=== PATIENT | female | born 1985 | race African-American/Black ===

== ENCOUNTER 2019-07-28 01:01 | Emergency (ER) | payer OTHER ==
[~2019-07-28] VITALS: Ht 175.3 cm; Wt 77.0 kg
[2019-07-28 01:15] VITALS: BP 133/81
== END 2019-07-28 01:16 | disposition home or self-care (01) ==
LOC: ER 01:01
DX: Z02.89 Encounter for other administrative examinations (principal)
CPT/HCPCS: 99283

== ENCOUNTER 2020-01-11 18:39 | Emergency (ER) | payer OTHER ==
[~2020-01-11] VITALS: Ht 167.6 cm; Wt 68.0 kg
[2020-01-11] MEDS ORDERED: LORAZEPAM 1MG TABLET PO ONE (19:30)
[2020-01-11 19:50] VITALS: BP 129/89
== END 2020-01-11 19:57 | disposition home or self-care (01) ==
LOC: ER 18:39
DX: F41.9 Anxiety disorder, unspecified (principal); I49.9 Cardiac arrhythmia, unspecified
CPT/HCPCS: 93005; 99283

== ENCOUNTER 2021-12-20 17:00 | Emergency (ER) | payer MEDICAID ==
[~2021-12-20] VITALS: Ht 172.7 cm; Wt 102.0 kg
[2021-12-20] MEDS ORDERED: LORAZEPAM 2MG/ML CPJ IM ONE (17:15)
[2021-12-20] MEDS ORDERED: DIPHENHYDRAMINE 50MG/ML VIAL IM ONE (17:15)
[2021-12-20] MEDS ORDERED: HALOPERIDOL LACTATE 5MG/ML VIAL IM ONE (17:15)
[2021-12-20 18:25] LABS: BASOPHILS % 0.3 % (0.0-2.0); EOSINOPHILS % 5.2 % (0.0-5.0); HEMATOCRIT. 37.2 % (36.0-48.0); LYMPHOCYTES % 21.6 % (20.0-50.0); MEAN CORPUSCULAR HEMOGLOBIN 27.9 pg (28.0-32.0); MEAN CORPUSCULAR VOLUME 86.2 fL (81.0-99.0); MEAN PLATELET VOLUME 7.8 fl (7.4-10.4); MONOCYTES % 9.5 % (2.0-8.0); NEUTROPHILS % 63.4 % (40.0-76.0); PLATELET 246 x1000/uL (130-400); RED BLOOD CELL COUNT 4.32 mill/uL (4.2-5.4); RED CELL DISTRIBUTION WIDTH 16.1 % (11.6-14.6)
[2021-12-20 18:32] LABS: CHLORIDE 107 mEq/L (98-107)
[2021-12-20 18:34] LABS: HCG SCREEN NEGATIVE
[2021-12-20 18:39] LABS: ETHANOL BLOOD < 10 mg/dL
[2021-12-20 22:50] LABS: CLARITY URINE CLOUDY (CLEAR); COLOR URINE YELLOW (YELLOW); KETONES URINE TRACE (NEGATIVE); LEUKOCYTE ESTERASE URINE 1+ (NEGATIVE); NITRITE URINE POSITIVE (NEGATIVE); OCCULT BLOOD URINE 1+ (NEGATIVE); PROTEIN URINE 1+ (NEGATIVE); SPECIFIC GRAVITY URINE 1.028 (1.005-1.030)
[2021-12-20 23:06] LABS: *BARBITURATES SCREEN URINE NEGATIVE (NEGATIVE); *BENZODIAZEPINES SCREEN URINE NEGATIVE (NEGATIVE); *COCAINE SCREEN URINE NEGATIVE (NEGATIVE); CANNABINOID URINE SCREEN NEGATIVE (NEGATIVE); METHADONE URINE SCREEN NEGATIVE (NEGATIVE); OPIATES URINE SCREEN NEGATIVE (NEGATIVE); PHENCYCLIDINE URINE SCREEN NEGATIVE (NEGATIVE)
[2021-12-20 23:14] LABS: *AMPHETAMINES SCREEN URINE PRESUMTIVE POSITIVE (NEGATIVE)
[2021-12-21] MEDS: OLANZAPINE 5MG TABLET PO SCH ×2 (12:00→18:00)
[2021-12-22] MEDS: OLANZAPINE 5MG TABLET PO SCH (09:40)
[2021-12-22 12:44] VITALS: BP 142/78
== END 2021-12-22 13:03 | disposition home or self-care (01) ==
LOC: ER 17:00
DX: F29 Unspecified psychosis not due to a substance or known physiological condition (principal); F41.0 Panic disorder [episodic paroxysmal anxiety]; R45.1 Restlessness and agitation; F31.9 Bipolar disorder, unspecified; F20.9 Schizophrenia, unspecified; Z20.822 Contact with and (suspected) exposure to COVID-19
CPT/HCPCS: 36415; 80053; 80305; 80307; 80320; 80329; 81003; 84703; 85025; 87086; 96372; 99285; C9803; J1200; J1630; J2060; U0003; U0005; G0480

== ENCOUNTER 2022-02-26 09:48 | Emergency (ER) | payer MEDICAID ==
[~2022-02-26] VITALS: Ht 162.6 cm; Wt 66.0 kg
[2022-02-26 09:51] VITALS: BP 152/95
== END 2022-02-26 11:24 | disposition home or self-care (01) ==
LOC: ER 09:48
DX: F15.10 Other stimulant abuse, uncomplicated (principal); Z86.59 Personal history of other mental and behavioral disorders
CPT/HCPCS: 99283

== ENCOUNTER 2022-06-19 18:45 | Emergency (ER) | payer MEDICAID ==
[~2022-06-19] VITALS: Ht 167.6 cm; Wt 77.0 kg
[2022-06-19 18:51] VITALS: BP 132/87
[2022-06-19] MEDS ORDERED: LORAZEPAM 1MG TABLET PO ONE (19:00)
[2022-06-19 19:30] LABS: BASOPHILS % 0.6 % (0.0-2.0); EOSINOPHILS % 8.3 % (0.0-5.0); HEMATOCRIT. 36.2 % (36.0-48.0); LYMPHOCYTES % 22.9 % (20.0-50.0); MEAN CORPUSCULAR VOLUME 87.7 fL (81.0-99.0); MEAN PLATELET VOLUME 7.2 fl (7.4-10.4); MONOCYTES % 9.5 % (2.0-8.0); NEUTROPHILS % 58.7 % (40.0-76.0); PLATELET 245 x1000/uL (130-400); RED BLOOD CELL COUNT 4.12 mill/uL (4.2-5.4); RED CELL DISTRIBUTION WIDTH 14.9 % (11.6-14.6)
[2022-06-19 19:34] LABS: CHLORIDE 111 mEq/L (98-107)
[2022-06-19 19:38] LABS: ETHANOL BLOOD < 10 mg/dL
== END 2022-06-19 19:58 | disposition home or self-care (01) ==
LOC: ER 18:45
DX: F41.1 Generalized anxiety disorder (principal); R44.3 Hallucinations, unspecified; J45.909 Unspecified asthma, uncomplicated; F31.9 Bipolar disorder, unspecified; I10 Essential (primary) hypertension
CPT/HCPCS: 36415; 80053; 80307; 80320; 80329; 85025; 99283; G0480

== ENCOUNTER 2022-06-28 23:56 | Emergency (ER) | payer MEDICAID ==
[~2022-06-28] VITALS: Ht 167.6 cm; Wt 72.6 kg
[2022-06-29 00:10] VITALS: BP 138/72
[2022-06-29] MEDS ORDERED: IPRATROPIUM/ALBUTEROL 0.5-3(2.5)MG/3ML NEB HHN ONE (03:00)
[2022-06-29] MEDS ORDERED: DOXY100T2 PO (03:02)
[2022-06-29] MEDS ORDERED: BENZ1LOZ73 PO (03:02)
[2022-06-29] MEDS ORDERED: ALBU6.7H15 INH (03:02)
[2022-06-29] MEDS ORDERED: LEVE1000 PO (03:03)
[2022-06-29] MEDS ORDERED: DOXYCYCLINE HYCLATE 100MG CAPSULE PO ONE (03:15)
== END 2022-06-29 03:33 | disposition home or self-care (01) ==
LOC: ER 23:56
DX: J45.901 Unspecified asthma with (acute) exacerbation (principal); J06.9 Acute upper respiratory infection, unspecified; F41.9 Anxiety disorder, unspecified; F31.9 Bipolar disorder, unspecified; F20.9 Schizophrenia, unspecified; I10 Essential (primary) hypertension; Z76.0 Encounter for issue of repeat prescription
CPT/HCPCS: 81025; 94640; 99283; Z7610

== ENCOUNTER 2022-09-02 03:35 | Emergency (ER) | payer MEDICAID ==
[~2022-09-02] VITALS: Ht 170.2 cm; Wt 79.0 kg
[~2022-09-02 03:35] MED LIST: ALBU6.7H15 INH; BENZ1LOZ73 PO; DOXY100T2 PO; LEVE1000 PO
[2022-09-02 03:38] VITALS: BP 124/70; PULSE 84; RESP 16; TEMP 97.9; O2SAT 100
== END 2022-09-02 04:06 | disposition left against medical advice (07) ==
LOC: ER 03:45
DX: Z53.21 Procedure and treatment not carried out due to patient leaving prior to being seen by health care provider (principal)
CPT/HCPCS: 99281

== ENCOUNTER 2022-10-19 03:36 | Emergency (ER) | payer MEDICAID ==
[~2022-10-19] VITALS: Ht 167.6 cm; Wt 72.0 kg
[2022-10-19 03:41] VITALS: O2SAT 98
[2022-10-19 05:02] LABS: BASOPHILS % 0.4 % (0.0-2.0); EOSINOPHILS % 3.3 % (0.0-5.0); HEMATOCRIT. 36.4 % (36.0-48.0); HEMOGLOBIN. 11.5 g/dL (12.0-16.0); MEAN CORPUSCULAR HEMOGLOBIN 28.3 pg (28.0-32.0); MEAN CORPUSCULAR HGB CONC 31.7 g/dL (31.0-37.0); MEAN CORPUSCULAR VOLUME 89.3 fL (81.0-99.0); MEAN PLATELET VOLUME 7.6 fl (7.4-10.4); MONOCYTES % 9.5 % (2.0-8.0); NEUTROPHILS % 60.8 % (40.0-76.0); PLATELET 202 x1000/uL (130-400); RED BLOOD CELL COUNT 4.08 mill/uL (4.2-5.4); RED CELL DISTRIBUTION WIDTH 14.5 % (11.6-14.6); WHITE BLOOD COUNT 8.4 x1000/uL (4.5-11.0)
[2022-10-19 05:08] LABS: CALCIUM 8.3 mg/dL (8.5-10.1); CHLORIDE 107 mEq/L (98-107); INDEX HEMOLYSI 1 (1-3); INDEX ICTERIC 1 (1-4); INDEX LIPEMIC 1 (1-3); POTASSIUM 3.2 mEq/L (3.5-5.1); SODIUM 135 mEq/L (136-145)
[2022-10-19 05:14] LABS: ACETAMINOPHEN < 2 ug/mL (10-30); ALANINE AMINOTRANSFERASE 23 IU/L (13-61); ALBUMIN 3.2 g/dL (3.4-5.0); ASPARTATE AMINOTRANSFERASE 17 IU/L (15-37); BILIRUBIN TOTAL 0.3 mg/dL (0.1-1.0); CARBON DIOXIDE 27 mEq/L (21-32); CREATININE 0.9 mg/dL (0.6-1.3); ETHANOL BLOOD < 10 mg/dL (-10); GLUCOSE 82 mg/dL (70-105); PROTEIN TOTAL 6.9 g/dL (6.0-8.3); UREA NITROGEN BLOOD 16 mg/dL (7-21)
[2022-10-19 05:22] LABS: CLARITY URINE TURBID (CLEAR); COLOR URINE YELLOW (YELLOW); GLUCOSE URINE NEGATIVE (NEGATIVE); KETONES URINE NEGATIVE (NEGATIVE); LEUKOCYTE ESTERASE URINE 3+ (NEGATIVE); NITRITE URINE NEGATIVE (NEGATIVE); OCCULT BLOOD URINE 2+ (NEGATIVE); PH URINE 5.5 (4.5-8.0); PROTEIN URINE TRACE (NEGATIVE); SPECIFIC GRAVITY URINE 1.021 (1.005-1.030)
[2022-10-19 05:25] LABS: YEAST URINE NONE SEEN
[2022-10-19 05:48] LABS: *BARBITURATES SCREEN URINE NEGATIVE (NEGATIVE); *BENZODIAZEPINES SCREEN URINE NEGATIVE (NEGATIVE); *COCAINE SCREEN URINE NEGATIVE (NEGATIVE); CANNABINOID URINE SCREEN NEGATIVE (NEGATIVE); METHADONE URINE SCREEN NEGATIVE (NEGATIVE); OPIATES URINE SCREEN NEGATIVE (NEGATIVE); PHENCYCLIDINE URINE SCREEN NEGATIVE (NEGATIVE)
[2022-10-19 06:00] LABS: *AMPHETAMINES SCREEN URINE PRESUMTIVE POSITIVE (NEGATIVE); ECSTASY MDMA SCREEN URINE CONF.TEST INDICATED (NEGATIVE)
[2022-10-19] MEDS ORDERED: LEVETIRACETAM 500MG TABLET PO ONE (06:15)
[2022-10-19 07:14] LABS: SQUAMOUS EPITHELIAL CELL URINE 1+ /lpf (RARE/1+)
[2022-10-19 07:15] LABS: WBC URINE 15-25 /hpf (0-2)
[2022-10-19 07:18] LABS: BACTERIA URINE 2+
[2022-10-19] MEDS ORDERED: LEVETIRACETAM 500MG TABLET PO NR (11:00)
[2022-10-19] MEDS ORDERED: POTASSIUM CHLORIDE 20MEQ TABLET SR PO ONE (14:00)
[2022-10-19 16:34] LABS: CALCIUM 8.6 mg/dL (8.5-10.1); CARBON DIOXIDE 28 mEq/L (21-32); CHLORIDE 111 mEq/L (98-107); CREATININE 0.8 mg/dL (0.6-1.3); GLUCOSE 105 mg/dL (70-105); INDEX HEMOLYSI 1 (1-3); INDEX ICTERIC 1 (1-4); INDEX LIPEMIC 1 (1-3); POTASSIUM 3.7 mEq/L (3.5-5.1); SODIUM 139 mEq/L (136-145); UREA NITROGEN BLOOD 11 mg/dL (7-21)
[2022-10-19] MEDS: FLUOXETINE HCL 10 MG CAPSULE PO SCH (17:00)
[2022-10-20] MEDS: LEVETIRACETAM 500MG TABLET PO SCH ×2 (09:00→22:18)
[2022-10-20] MEDS: FLUOXETINE HCL 10 MG CAPSULE PO SCH (09:00)
[2022-10-20] MEDS ORDERED: LEVETIRACETAM 500MG TABLET PO SCH (09:00)
[2022-10-21] MEDS: FLUOXETINE HCL 10 MG CAPSULE PO SCH (09:08)
[2022-10-21] MEDS: LEVETIRACETAM 500MG TABLET PO SCH (09:08)
[2022-10-21 09:53] VITALS: BP 131/56; PULSE 80; RESP 18; TEMP 98
== END 2022-10-21 09:56 | disposition home or self-care (01) ==
LOC: ER 03:36
DX: R45.851 Suicidal ideations (principal); F17.200 Nicotine dependence, unspecified, uncomplicated; F12.10 Cannabis abuse, uncomplicated; I10 Essential (primary) hypertension; J45.909 Unspecified asthma, uncomplicated; Z20.822 Contact with and (suspected) exposure to COVID-19; Z86.59 Personal history of other mental and behavioral disorders
CPT/HCPCS: 80053; 80305; 80048; 81003; 81025; 80307; 80329; 80320; 85025; 87086; 36415; 99285; 87426; C9803; G0480

== ENCOUNTER 2022-11-19 01:49 | Emergency (ER) | payer MEDICAID ==
[~2022-11-19] VITALS: Ht 165.1 cm; Wt 82.0 kg
[2022-11-19 01:53] VITALS: O2SAT 99
[2022-11-19] MEDS ORDERED: ASPIRIN 325MG EC TABLET PO ONE (02:00)
[2022-11-19 02:45] LABS: CLARITY URINE TURBID (CLEAR); COLOR URINE YELLOW (YELLOW); GLUCOSE URINE NEGATIVE (NEGATIVE); KETONES URINE NEGATIVE (NEGATIVE); LEUKOCYTE ESTERASE URINE 2+ (NEGATIVE); NITRITE URINE NEGATIVE (NEGATIVE); OCCULT BLOOD URINE NEGATIVE (NEGATIVE); PROTEIN URINE NEGATIVE (NEGATIVE)
[2022-11-19 02:49] LABS: BACTERIA URINE 2+; YEAST URINE NONE SEEN
[2022-11-19 03:14] LABS: SQUAMOUS EPITHELIAL CELL URINE 1+ /lpf (RARE/1+)
[2022-11-19 03:22] LABS: *BARBITURATES SCREEN URINE NEGATIVE (NEGATIVE); *BENZODIAZEPINES SCREEN URINE NEGATIVE (NEGATIVE); *COCAINE SCREEN URINE NEGATIVE (NEGATIVE); CANNABINOID URINE SCREEN NEGATIVE (NEGATIVE); ECSTASY MDMA SCREEN URINE NEGATIVE (NEGATIVE); METHADONE URINE SCREEN NEGATIVE (NEGATIVE); OPIATES URINE SCREEN NEGATIVE (NEGATIVE); PHENCYCLIDINE URINE SCREEN NEGATIVE (NEGATIVE)
[2022-11-19 03:23] LABS: WBC URINE 15-25 /hpf (0-2)
[2022-11-19 03:31] LABS: BASOPHILS % 0.6 % (0.0-2.0); EOSINOPHILS % 5.9 % (0.0-5.0); HEMATOCRIT. 33.4 % (36.0-48.0); HEMOGLOBIN. 11.1 g/dL (12.0-16.0); LYMPHOCYTES % 28.1 % (20.0-50.0); MEAN CORPUSCULAR HEMOGLOBIN 28.8 pg (28.0-32.0); MEAN CORPUSCULAR HGB CONC 33.2 g/dL (31.0-37.0); MEAN CORPUSCULAR VOLUME 86.7 fL (81.0-99.0); MEAN PLATELET VOLUME 7.9 fl (7.4-10.4); MONOCYTES % 11.5 % (2.0-8.0); NEUTROPHILS % 53.9 % (40.0-76.0); PLATELET 190 x1000/uL (130-400); RED BLOOD CELL COUNT 3.85 mill/uL (4.2-5.4); RED CELL DISTRIBUTION WIDTH 14.9 % (11.6-14.6); WHITE BLOOD COUNT 6.5 x1000/uL (4.5-11.0)
[2022-11-19 03:55] LABS: CHLORIDE 107 mEq/L (98-107); INDEX HEMOLYSI 1 (1-3); INDEX ICTERIC 1 (1-4); INDEX LIPEMIC 1 (1-3); POTASSIUM 3.3 mEq/L (3.5-5.1); SODIUM 140 mEq/L (136-145)
[2022-11-19 03:56] LABS: HCG SCREEN NEGATIVE
[2022-11-19 03:57] LABS: *AMPHETAMINES SCREEN URINE PRESUMTIVE POSITIVE (NEGATIVE)
[2022-11-19 04:09] LABS: ACETAMINOPHEN < 2 ug/mL (10-30); ALANINE AMINOTRANSFERASE 23 IU/L (13-61); ALBUMIN 3.1 g/dL (3.4-5.0); ASPARTATE AMINOTRANSFERASE 21 IU/L (15-37); BILIRUBIN TOTAL 0.2 mg/dL (0.1-1.0); CALCIUM 8.6 mg/dL (8.5-10.1); CARBON DIOXIDE 26 mEq/L (21-32); CREATININE 0.8 mg/dL (0.6-1.3); ETHANOL BLOOD < 10 mg/dL (-10); GLUCOSE 94 mg/dL (70-105); NT PRO B-TYPE NATRIURETIC PEP 16 pg/mL (5-125); PROTEIN TOTAL 6.5 g/dL (6.0-8.3); UREA NITROGEN BLOOD 14 mg/dL (7-21)
[2022-11-19] MEDS ORDERED: CEPHALEXIN 250MG CAPSULE PO NR (04:15)
[2022-11-19] MEDS ORDERED: ASPIRIN 325MG EC TABLET PO NR (04:45)
[2022-11-19] MEDS: LIDOCAINE 5% PATCH TOP SCH ×2 (05:32→09:19)
[2022-11-19 05:43] LABS: TROPONIN I HIGH SENSITIVITY 6 ng/L (<54)
[2022-11-19] MEDS: OLANZAPINE 5MG TABLET ODT PO SCH ×2 (10:53→17:35)
[2022-11-19] MEDS: CEPHALEXIN 250MG CAPSULE PO SCH ×2 (12:39→17:35)
[2022-11-19 17:22] VITALS: BP 121/60; PULSE 75; RESP 16; TEMP 98
== END 2022-11-19 18:36 ==
LOC: ER 02:22
DX: R45.851 Suicidal ideations (principal); F15.10 Other stimulant abuse, uncomplicated; N39.0 Urinary tract infection, site not specified; R07.89 Other chest pain; F41.9 Anxiety disorder, unspecified; J45.909 Unspecified asthma, uncomplicated; F31.9 Bipolar disorder, unspecified; I10 Essential (primary) hypertension; F20.9 Schizophrenia, unspecified; Z20.822 Contact with and (suspected) exposure to COVID-19
CPT/HCPCS: 80053; 80305; 81003; 80307; 80329; 80320; 84703; 83880; 85025; 87086; 84484; 36415; 71045; 93005; 99285; 87426; C9803; G0480

== ENCOUNTER 2022-12-20 04:47 | Emergency (ER) | payer MEDICAID ==
[~2022-12-20] VITALS: Ht 162.6 cm; Wt 85.0 kg
[2022-12-20 07:39] LABS: BASOPHILS % 0.4 % (0.0-2.0); EOSINOPHILS % 4.4 % (0.0-5.0); HEMATOCRIT. 36.5 % (36.0-48.0); LYMPHOCYTES % 25.1 % (20.0-50.0); MEAN CORPUSCULAR HEMOGLOBIN 28.7 pg (28.0-32.0); MEAN CORPUSCULAR HGB CONC 32.8 g/dL (31.0-37.0); MEAN CORPUSCULAR VOLUME 87.6 fL (81.0-99.0); MEAN PLATELET VOLUME 6.9 fl (7.4-10.4); MONOCYTES % 12.1 % (2.0-8.0); PLATELET 183 x1000/uL (130-400); RED BLOOD CELL COUNT 4.17 mill/uL (4.2-5.4); RED CELL DISTRIBUTION WIDTH 15.5 % (11.6-14.6); WHITE BLOOD COUNT 7.8 x1000/uL (4.5-11.0)
[2022-12-20 08:01] LABS: HCG SCREEN NEGATIVE
[2022-12-20 08:47] LABS: CHLORIDE 108 mEq/L (98-107); INDEX HEMOLYSI 1 (1-3); INDEX ICTERIC 1 (1-4); INDEX LIPEMIC 1 (1-3); POTASSIUM 4.1 mEq/L (3.5-5.1); SODIUM 140 mEq/L (136-145)
[2022-12-20 08:57] LABS: ALANINE AMINOTRANSFERASE 22 IU/L (13-61); ALBUMIN 3.1 g/dL (3.4-5.0); ASPARTATE AMINOTRANSFERASE 21 IU/L (15-37); BILIRUBIN TOTAL 0.5 mg/dL (0.1-1.0); CALCIUM 8.3 mg/dL (8.5-10.1); CARBON DIOXIDE 31 mEq/L (21-32); ETHANOL BLOOD < 10 mg/dL (<10); GLUCOSE 83 mg/dL (70-105); PROTEIN TOTAL 6.7 g/dL (6.0-8.3); UREA NITROGEN BLOOD 16 mg/dL (7-21)
[2022-12-20 14:13] LABS: COLOR URINE YELLOW (YELLOW)
[2022-12-20 14:14] LABS: CLARITY URINE SL HAZY (CLEAR); GLUCOSE URINE NEGATIVE (NEGATIVE); KETONES URINE NEGATIVE (NEGATIVE); NITRITE URINE POSITIVE (NEGATIVE); OCCULT BLOOD URINE 1+ (NEGATIVE); PH URINE 6.5 (4.5-8.0); PROTEIN URINE NEGATIVE (NEGATIVE)
[2022-12-20 14:15] LABS: LEUKOCYTE ESTERASE URINE 2+ (NEGATIVE)
[2022-12-20 14:16] LABS: SQUAMOUS EPITHELIAL CELL URINE 1+ /lpf (RARE/1+)
[2022-12-20 14:17] LABS: BACTERIA URINE 4+; WBC URINE 25-50 /hpf (0-2)
[2022-12-20 14:18] LABS: YEAST URINE NONE SEEN
[2022-12-20 14:19] LABS: TRICHOMONAS URINE RARE
[2022-12-20 14:21] LABS: *BARBITURATES SCREEN URINE NEGATIVE (NEGATIVE); *BENZODIAZEPINES SCREEN URINE NEGATIVE (NEGATIVE); *COCAINE SCREEN URINE NEGATIVE (NEGATIVE); CANNABINOID URINE SCREEN NEGATIVE (NEGATIVE); OPIATES URINE SCREEN NEGATIVE (NEGATIVE); PHENCYCLIDINE URINE SCREEN NEGATIVE (NEGATIVE)
[2022-12-20 14:41] LABS: *AMPHETAMINES SCREEN URINE PRESUMTIVE POSITIVE (NEGATIVE); ECSTASY MDMA SCREEN URINE CONF.TEST INDICATED (NEGATIVE)
[2022-12-20] MEDS ORDERED: IPRATROPIUM/ALBUTEROL 0.5-3(2.5)MG/3ML NEB HHN ONE (20:30)
[2022-12-20 21:19] VITALS: PULSE 74; RESP 18; O2SAT 99
[2022-12-21 11:08] VITALS: BP 122/74; PULSE 72; RESP 18; TEMP 98
== END 2022-12-21 13:06 | disposition home or self-care (01) ==
LOC: ER 04:47
DX: R45.851 Suicidal ideations (principal); F41.9 Anxiety disorder, unspecified; J45.909 Unspecified asthma, uncomplicated; F31.9 Bipolar disorder, unspecified; I10 Essential (primary) hypertension; F20.9 Schizophrenia, unspecified; F15.10 Other stimulant abuse, uncomplicated; Z20.822 Contact with and (suspected) exposure to COVID-19
CPT/HCPCS: 80053; 80305; 81003; 80320; 84703; 85025; 87086; 36415; 94640; 99285; 87426; Z7610 ×3; C9803; G0480

== ENCOUNTER 2023-02-15 01:04 | Emergency (ER) | payer MEDICAID ==
[~2023-02-15] VITALS: Ht 165.1 cm; Wt 73.0 kg
[2023-02-15 01:15] VITALS: O2SAT 95
[2023-02-15 01:34] LABS: BASOPHILS % 0.5 % (0.0-2.0); EOSINOPHILS % 4.2 % (0.0-5.0); HEMOGLOBIN. 12.1 g/dL (12.0-16.0); LYMPHOCYTES % 28.5 % (20.0-50.0); MEAN CORPUSCULAR HEMOGLOBIN 29.3 pg (28.0-32.0); MEAN CORPUSCULAR HGB CONC 32.6 g/dL (31.0-37.0); MEAN CORPUSCULAR VOLUME 89.8 fL (81.0-99.0); MEAN PLATELET VOLUME 7.1 fl (7.4-10.4); MONOCYTES % 10.2 % (2.0-8.0); NEUTROPHILS % 56.6 % (40.0-76.0); PLATELET 231 x1000/uL (130-400); RED BLOOD CELL COUNT 4.12 mill/uL (4.2-5.4); RED CELL DISTRIBUTION WIDTH 14.9 % (11.6-14.6); WHITE BLOOD COUNT 7.2 x1000/uL (4.5-11.0)
[2023-02-15 01:44] LABS: ACETAMINOPHEN < 2 ug/mL (10-30); ALANINE AMINOTRANSFERASE 14 IU/L (10-49); ALBUMIN 3.9 g/dL (3.2-4.8); ASPARTATE AMINOTRANSFERASE 20 IU/L (<34); BILIRUBIN TOTAL 0.2 mg/dL (0.1-1.0); CALCIUM 9.1 mg/dL (8.7-10.4); CARBON DIOXIDE 27 mEq/L (21-32); CHLORIDE 109 mEq/L (98-107); GLUCOSE 140 mg/dL (70-105); POTASSIUM 3.3 mEq/L (3.5-5.1); PROTEIN TOTAL 6.9 g/dL (6.0-8.3); SODIUM 142 mEq/L (136-145); UREA NITROGEN BLOOD 12 mg/dL (9-23)
[2023-02-15 01:51] LABS: HCG SCREEN NEGATIVE
[2023-02-15 01:59] LABS: ETHANOL BLOOD < 10 mg/dL (<10)
[2023-02-15 04:24] VITALS: BP 135/82; PULSE 89; RESP 16; TEMP 97.9
[2023-02-15 09:06] LABS: CLARITY URINE TURBID (CLEAR); COLOR URINE DARK YELLOW (YELLOW); GLUCOSE URINE NEGATIVE (NEGATIVE); KETONES URINE NEGATIVE (NEGATIVE); LEUKOCYTE ESTERASE URINE 2+ (NEGATIVE); NITRITE URINE POSITIVE (NEGATIVE); OCCULT BLOOD URINE 2+ (NEGATIVE); PH URINE 5.5 (4.5-8.0); PROTEIN URINE TRACE (NEGATIVE); SPECIFIC GRAVITY URINE 1.031 (1.005-1.030)
[2023-02-15 09:24] LABS: BACTERIA URINE 4+; CALCIUM OXALATE CRYSTALS URINE 1+ /lpf; RBC URINE 15-25 /hpf (0-2); SQUAMOUS EPITHELIAL CELL URINE 3+ /lpf (RARE/1+); WBC URINE 50-100 /hpf (0-2); YEAST URINE NONE SEEN
[2023-02-15 09:34] LABS: *AMPHETAMINES SCREEN URINE PRESUMPTIVE POSITIVE (NEGATIVE); *BARBITURATES SCREEN URINE NEGATIVE (NEGATIVE); *BENZODIAZEPINES SCREEN URINE NEGATIVE (NEGATIVE); *COCAINE SCREEN URINE NEGATIVE (NEGATIVE); CANNABINOID URINE SCREEN NEGATIVE (NEGATIVE); ECSTASY MDMA SCREEN URINE CONF.TEST INDICATED (NEGATIVE); METHADONE URINE SCREEN Neg (NEGATIVE); OPIATES URINE SCREEN NEGATIVE (NEGATIVE); PHENCYCLIDINE URINE SCREEN NEGATIVE (NEGATIVE)
== END 2023-02-15 10:49 | disposition home or self-care (01) ==
LOC: ER 01:04
DX: R45.851 Suicidal ideations (principal); I10 Essential (primary) hypertension; J45.909 Unspecified asthma, uncomplicated; Z00.00 Encounter for general adult medical examination without abnormal findings; Z91.148 Patient's other noncompliance with medication regimen for other reason; Z86.59 Personal history of other mental and behavioral disorders
CPT/HCPCS: 36415; 80053; 80305; 80307; 80320; 80329; 81003; 84703; 85025; 87077; 87186; 99283; G0480

== ENCOUNTER 2023-06-23 15:04 | Emergency (ER) | payer MEDICAID ==
[~2023-06-23] VITALS: Ht 167.6 cm; Wt 105.0 kg
[2023-06-23 15:08] VITALS: O2SAT 99
[2023-06-23] MEDS ORDERED: SULF1TAB48 MT (15:18)
[2023-06-23] MEDS ORDERED: CEPH500C2 MT (15:18)
[2023-06-23 17:48] VITALS: BP 138/78; PULSE 92; RESP 18; TEMP 98.7
== END 2023-06-23 18:00 | disposition home or self-care (01) ==
LOC: ER 15:04
DX: S30.860A Insect bite (nonvenomous) of lower back and pelvis, initial encounter (principal); I10 Essential (primary) hypertension; J45.909 Unspecified asthma, uncomplicated; Z86.59 Personal history of other mental and behavioral disorders; W57.XXXA Bitten or stung by nonvenomous insect and other nonvenomous arthropods, initial encounter; Y93.89 Activity, other specified; Y92.89 Other specified places as the place of occurrence of the external cause; Y99.8 Other external cause status
CPT/HCPCS: 99283

== ENCOUNTER 2023-09-01 23:24 | Emergency (ER) | payer MEDICAID ==
[~2023-09-01] VITALS: Ht 170.2 cm; Wt 82.0 kg
[~2023-09-01 23:24] MED LIST changes: +CEPH500C2 MT; +SULF1TAB48 MT
[2023-09-01 23:30] VITALS: O2SAT 100
[2023-09-02 00:03] LABS: BASOPHILS % 0.4 % (0.0-2.0); HEMOGLOBIN. 10.9 g/dL (12.0-16.0); MEAN CORPUSCULAR HEMOGLOBIN 28.5 pg (28.0-32.0); MEAN CORPUSCULAR HGB CONC 32.2 g/dL (31.0-37.0); MEAN CORPUSCULAR VOLUME 88.4 fL (81.0-99.0); MEAN PLATELET VOLUME 7.2 fl (7.4-10.4); MONOCYTES % 10.4 % (2.0-8.0); NEUTROPHILS % 52.2 % (40.0-76.0); PLATELET 210 x1000/uL (130-400); RED BLOOD CELL COUNT 3.84 mill/uL (4.2-5.4); RED CELL DISTRIBUTION WIDTH 15.4 % (11.6-14.6)
[2023-09-02 00:07] LABS: CARBON DIOXIDE 27 mEq/L (21-32); CHLORIDE 107 mEq/L (98-107); POTASSIUM 3.1 mEq/L (3.5-5.1); SODIUM 140 mEq/L (136-145)
[2023-09-02 00:08] LABS: CALCIUM 9.1 mg/dL (8.7-10.4)
[2023-09-02 00:12] LABS: CREATININE 0.8 mg/dL (0.6-1.0)
[2023-09-02 00:13] LABS: GLUCOSE 100 mg/dL (70-105); UREA NITROGEN BLOOD 17 mg/dL (9-23)
[2023-09-02 00:14] LABS: ACETAMINOPHEN < 2 ug/mL (10-30)
[2023-09-02 00:15] LABS: CREATINE KINASE 377 IU/L (34-145)
[2023-09-02 00:18] LABS: HCG SCREEN NEGATIVE
[2023-09-02 00:24] LABS: ETHANOL BLOOD < 10 mg/dL (<10)
[2023-09-02] MEDS: SODIUM CHLORIDE 0.9% 1,000 ML IV ONE (00:51)
[2023-09-02 01:01] LABS: *AMPHETAMINES SCREEN URINE PRESUMPTIVE POSITIVE (NEGATIVE); *BARBITURATES SCREEN URINE NEGATIVE (NEGATIVE); *BENZODIAZEPINES SCREEN URINE NEGATIVE (NEGATIVE); CANNABINOID URINE SCREEN NEGATIVE (NEGATIVE); ECSTASY MDMA SCREEN URINE CONF.TEST INDICATED (NEGATIVE); METHADONE URINE SCREEN NEGATIVE (NEGATIVE); OPIATES URINE SCREEN NEGATIVE (NEGATIVE); PHENCYCLIDINE URINE SCREEN NEGATIVE (NEGATIVE)
[2023-09-02 01:12] LABS: CLARITY URINE CLEAR (CLEAR); COLOR URINE YELLOW (YELLOW); GLUCOSE URINE NEGATIVE (NEGATIVE); KETONES URINE NEGATIVE (NEGATIVE); NITRITE URINE NEGATIVE (NEGATIVE); OCCULT BLOOD URINE 1+ (NEGATIVE); PROTEIN URINE NEGATIVE (NEGATIVE); SPECIFIC GRAVITY URINE 1.025 (1.005-1.030)
[2023-09-02 01:13] LABS: LEUKOCYTE ESTERASE URINE 1+ (NEGATIVE)
[2023-09-02 01:17] LABS: ALANINE AMINOTRANSFERASE 15 IU/L (10-49); ALBUMIN 3.6 g/dL (3.2-4.8); ASPARTATE AMINOTRANSFERASE 23 IU/L (<34); BILIRUBIN TOTAL 0.3 mg/dL (0.1-1.0); PROTEIN TOTAL 6.6 g/dL (6.0-8.3)
[2023-09-02 01:24] LABS: *COCAINE SCREEN URINE NEGATIVE (NEGATIVE)
[2023-09-02 01:26] LABS: BACTERIA URINE 1+; SQUAMOUS EPITHELIAL CELL URINE 2+ /lpf (RARE/1+); TRICHOMONAS URINE 1+
[2023-09-02] MEDS: OLANZAPINE 5MG TABLET ODT PO NR (01:33)
[2023-09-02] MEDS: LORAZEPAM 1MG TABLET PO NR (01:34)
[2023-09-02 01:38] LABS: BILIRUBIN DIRECT < 0.1 mg/dL (<=3.0)
[2023-09-02] MEDS: METRONIDAZOLE 500MG TABLET PO SCH (10:03)
[2023-09-02] MEDS: OLANZAPINE 5MG TABLET ODT PO SCH (15:30)
[2023-09-03] MEDS: POTASSIUM CHLORIDE 20MEQ/PACKET PO NR (03:00)
[2023-09-03 12:00] VITALS: BP 128/78; PULSE 74; RESP 13; TEMP 98.5
== END 2023-09-03 12:10 | disposition left against medical advice (07) ==
LOC: ER 23:32
DX: R45.851 Suicidal ideations (principal); N39.0 Urinary tract infection, site not specified; F19.90 Other psychoactive substance use, unspecified, uncomplicated; J45.909 Unspecified asthma, uncomplicated; I10 Essential (primary) hypertension; Z00.00 Encounter for general adult medical examination without abnormal findings; Z79.899 Other long term (current) drug therapy; Z86.59 Personal history of other mental and behavioral disorders; Z20.822 Contact with and (suspected) exposure to COVID-19
CPT/HCPCS: 80076; 80305; 80048; 81003; 81025; 80307; 80329; 80320; 82550; 84703; 85025; 36415; 71045; 93005; 99285; 87426; J7030; G0480

== ENCOUNTER 2024-01-03 00:26 | Emergency (ER) | payer MEDICAID ==
[~2024-01-03] VITALS: Ht 167.6 cm; Wt 91.0 kg
[2024-01-03 00:31] VITALS: O2SAT 100
[2024-01-03 05:18] LABS: BASOPHILS % 0.6 % (0.0-2.0); EOSINOPHILS % 5.4 % (0.0-5.0); HEMATOCRIT. 34.6 % (36.0-48.0); HEMOGLOBIN. 11.2 g/dL (12.0-16.0); MEAN CORPUSCULAR HEMOGLOBIN 28.1 pg (28.0-32.0); MEAN CORPUSCULAR HGB CONC 32.3 g/dL (31.0-37.0); MEAN CORPUSCULAR VOLUME 86.9 fL (81.0-99.0); MEAN PLATELET VOLUME 7.3 fl (7.4-10.4); MONOCYTES % 12.4 % (2.0-8.0); NEUTROPHILS % 49.6 % (40.0-76.0); PLATELET 187 x1000/uL (130-400); RED BLOOD CELL COUNT 3.98 mill/uL (4.2-5.4); RED CELL DISTRIBUTION WIDTH 15.2 % (11.6-14.6); WHITE BLOOD COUNT 6.3 x1000/uL (4.5-11.0)
[2024-01-03 05:24] LABS: CHLORIDE 111 mEq/L (98-107); POTASSIUM 3.8 mEq/L (3.5-5.1); SODIUM 141 mEq/L (136-145)
[2024-01-03 05:25] LABS: CARBON DIOXIDE 28 mEq/L (21-32)
[2024-01-03 05:30] LABS: CREATININE 0.9 mg/dL (0.6-1.0); GLUCOSE 89 mg/dL (70-105); UREA NITROGEN BLOOD 12 mg/dL (9-23)
[2024-01-03 06:04] LABS: ETHANOL BLOOD < 10 mg/dL (<10)
[2024-01-03 06:22] VITALS: TEMP 37.05852
[2024-01-03 06:57] LABS: HCG SCREEN NEGATIVE
[2024-01-03 08:02] LABS: ACETAMINOPHEN < 2 ug/mL (10-30)
[2024-01-03 09:49] VITALS: BP 162/84; PULSE 75; RESP 14; O2SAT 99
== END 2024-01-03 10:35 | disposition home or self-care (01) ==
LOC: ER 00:28
DX: R45.851 Suicidal ideations (principal); F15.10 Other stimulant abuse, uncomplicated; J45.909 Unspecified asthma, uncomplicated; F31.9 Bipolar disorder, unspecified; Z86.59 Personal history of other mental and behavioral disorders
CPT/HCPCS: 36415; 80048; 80307; 80320; 80329; 84703; 85025; 93005; 99284; 99285; G0480